=== PATIENT | male | born 1950 | race Caucasian/White ===

== ENCOUNTER → 2017-05-25 | Day surgery (SDC) | payer OTHER, MEDICARE ==
[~2017-05-25] MED LIST: ACETAMINOPHEN325 MG PO; ALEVE; ALEVE220 M1 PO; AMLODIPINE BESYL5 MG PO; ASPIRIN; AZITHROMYCIN250 MG PO; BLOOD PRESSURE MED; BLOOD PRESSURE PILL; CALCIUM + D 6001 TA1 PO; CHOLESTEROL MED; DOCUSATE SODIU100 MG PO; DOXYCYCLINE HY100 M2 PO; FENOFIBRATE160 MG PO; FERRO-TIME325 MG PO; FLEXERIL10 MG PO; FLOMAX0.4 M1 PO; HALOPERIDOL2 MG PO; HYDROCHLOROTHIA25 MG PO; HYDROCODON-ACE1 EAC5 PO; HYTRIN1 M1 PO; LIPITOR; LISINOPRIL; LISINOPRIL PO; LISINOPRIL-HCTZ1 T14 PO; LISINOPRIL-HCTZ1 T15 PO; LISINOPRIL20 MG PO; METOPROLOL SUCC50 MG PO; MILK OF MAGNESIA PO; MOBIC15 MG PO; MULTI VITAMIN1 EACH PO; MUSCLE RELAXER PO; NEURONTIN300 MG PO; NORCO 10/3251 TAB PO; NORVASC PO; OMEPRAZOLE40 M1 PO; OMEPRAZOLE40 MG PO; OXYCONTIN40 MG PO; PERCOCET 10/31 UDTA1 PO; PRAVACHOL20 MG PO; PRAVASTATIN SOD20 MG PO; PRENATAL1 TA1 PO; REMERON PO; REMERON15 MG PO; RESTORIL15 MG PO; ROBITUSSIN PO; SEROQUEL PO; SEROQUEL50 M1 PO; TEKTURNA HCT 301 TA1 PO; TEMAZEPAM PO; TEMAZEPAM30 MG PO; TIZANIDINE HCL4 M1 PO; TOPAMAX200 MG PO; TOPIRAMATE100 MG PO; TOPROL XL 50 MG50 MG PO; TOPROL XL PO; VICODIN 5/500 T1 TAB PO; VIIBRYD40 MG PO; VITAMIN B-12500 MCG PO; VITAMIN B12 INJECT; VITAMIN B125000 MCG PO; VITAMIN D1000 UNIT PO; WATER PILL; XARELTO20 MG PO; ZANAFLEX4 M1 PO
--- NOTE | ~2017-05-25 | OR ---
Unit #: [id number] #: [id number] Patient: KENYON ABARCA [id number] [address] [address] [id number] O MR#: [id number] NAME: KENYON ABARCA ROOM: Date of Procedure: 05/25/2017 Admission Date: 05/25/2017 Surgeon: Keith Tapia M.D. : 1950 Attending Physician: Keith Tapia M.D. Primary Care Physician: Sergey Barajas M.D. OPERATIVE REPORT PREOPERATIVE DIAGNOSES Back pain, radiculopathy, degenerative disk disease, postlumbar fusion. POSTOPERATIVE DIAGNOSES Back pain, radiculopathy, degenerative disk disease, postlumbar fusion. PROCEDURE PERFORMED Lumbar epidural steroid injection with intravenous sedation and fluoroscopic guidance for needle localization. INDICATIONS FOR PROCEDURE The patient is a 67-year-old male with worsening back and bilateral lower extremity pain associated with previously mentioned nonsurgical pathology. He has been fused from L3-S1. He has significant adjacent level disease. He was last treated for flare in this pain 7 months ago and did very well until just recently. At that point, he also had cervical epidurals due to cervical disk herniation at the symptomatic. Neck is remained adequately controlled. DESCRIPTION OF PROCEDURE The patient was placed in a seated position. Standard monitors were applied. 0.5 mg of Versed was given for sedation and anxiolysis, which were adequate. Vital signs remained stable. Sterile prep and drape then of the lumbar area was performed. The skin at the L2-L3 level was localized with 1% lidocaine. An 18-gauge [employer] needle was then advanced via loss of resistance technique and fluoroscopic guidance in toward the epidural space. After confirming proper positioning with fluoroscopy and radiographic contrast, 80 mg of Depo-Medrol and 4 mL of 0.125% bupivacaine were deposited. The patient tolerated the procedure otherwise well and was discharged to the recovery room in stable condition. Dictated by... Ciaran TaylorP/modl TD: 05/25/2017 14:19 JOB #: [id number] Unit #: [id number] #: [id number] Patient: KENYON ABARCA OPERATIVE REPORT Page 1 of 1 X Keith Tapia MD X PROCEDURE OPERATIVE NOTE
== END | disposition home or self-care (01) ==
LOC: CCSC 08:15
DX: M51.16 Intervertebral disc disorders with radiculopathy, lumbar region (principal); Z98.1 Arthrodesis status
CPT/HCPCS: J1040; J2250

== ENCOUNTER → 2017-06-01 | Day surgery (SDC) | payer OTHER, MEDICARE ==
--- NOTE | ~2017-06-01 | OR ---
Unit #: [id number] #: [id number] Patient: KENYON ABARCA [id number] [address] [address] [id number] O MR#: [id number] NAME: KENYON ABARCA ROOM: Date of Procedure: 06/01/2017 Admission Date: 06/01/2017 Surgeon: Keith Tapia M.D. : 1950 Attending Physician: Keith Tapia M.D. Primary Care Physician: Sergey Barajas M.D. OPERATIVE REPORT JOB NOTE: CC: [facility]. PREOPERATIVE DIAGNOSES Back pain, radiculopathy, post lumbar fusion, degenerative lumbar disk disease. POSTOPERATIVE DIAGNOSES Back pain, radiculopathy, post lumbar fusion, degenerative lumbar disk disease. PROCEDURE PERFORMED Lumbar epidural steroid injection with intravenous sedation and fluoroscopic guidance for needle localization. INDICATIONS FOR PROCEDURE The patient is a 67-year-old male with return of back and bilateral lower extremity pain. He has significant adjacent level disease above his L3-S1 fusion. epidural steroids address this 7 months ago and did very well. He had resurgence of the pain, so a repeat injection was done which resulted in fairly good settling of his symptom complex not yet back to baseline, so the plan is to repeat a second injection. DESCRIPTION OF PROCEDURE The patient was placed in a seated position. Standard monitors were applied. 0.5 mg of Versed were given for sedation and anxiolysis, which were adequate. Vital signs remained stable. Sterile prep and drape then of the L2-L3 level was localized with 1% lidocaine. An 18-gauge Meludiate[employer] needle was then advanced via loss of resistance technique and fluoroscopic guidance in toward the epidural space. After confirming proper positioning with fluoroscopy and radiographic contrast, 80 mg of Depo-Medrol and 4 mL of 0.125% bupivacaine were deposited. The patient tolerated the procedure otherwise well and was discharged to recovery room in stable condition. Dictated by... Keith Tapia M.D. LIO/kym TD: 06/01/2017 10:48 JOB #: [id number] Unit #: [id number] #: [id number] Patient: KENYON ABARCA OPERATIVE REPORT Page 1 of 1 X Keith Tapia MD X PROCEDURE OPERATIVE NOTE
== END | disposition home or self-care (01) ==
LOC: CCSC 08:05
DX: M51.16 Intervertebral disc disorders with radiculopathy, lumbar region (principal); I10 Essential (primary) hypertension; K21.9 Gastro-esophageal reflux disease without esophagitis; F32.9 Major depressive disorder, single episode, unspecified; Z88.8 Allergy status to other drugs, medicaments and biological substances; Z79.01 Long term (current) use of anticoagulants; Z79.1 Long term (current) use of non-steroidal anti-inflammatories (NSAID); Z79.899 Other long term (current) drug therapy; Z79.891 Long term (current) use of opiate analgesic; Z98.1 Arthrodesis status
CPT/HCPCS: J1040; J2250

== ENCOUNTER → 2017-06-08 | Day surgery (SDC) | payer OTHER, MEDICARE ==
--- NOTE | ~2017-06-08 | OR ---
Unit #: [id number] #: [id number] Patient: KENYON ABARCA [id number] [address] [place], [place] [address] [id number] O MR#: [id number] NAME: KENYON ABARCA ROOM: Date of Procedure: 06/08/2017 Admission Date: 06/08/2017 Surgeon: Keith Tapia M.D. : 1950 Attending Physician: Keith Tapia M.D. Primary Care Physician: Sergey Barajas M.D. OPERATIVE REPORT JOB NOTE: CC: [facility] PREOPERATIVE DIAGNOSES Post-fusion, degenerative disk disease, back pain, radiculopathy. POSTOPERATIVE DIAGNOSES Post-fusion, degenerative disk disease, back pain, radiculopathy. PROCEDURE PERFORMED Lumbar epidural steroid injection with intravenous sedation and fluoroscopic guidance for needle localization. INDICATIONS FOR PROCEDURE The patient is a 67-year-old male, status post L3 through S1 fusion. He has significant adjacent level disease causing back and bilateral lower extremity pains. At this point, nonsurgical in nature. He has done very well in the past with epidural steroids. Last injection lasting him for about 7 months. He had resurgence of the pain. He has had 2 injections done over the last few weeks that definitely significantly improved his pain by greater than 50%. He is able to walk up from his car to the clinic today, where normally he would have to stop 2 or 3 times using a cane and the balance should hold on to. Based on his good partial response, but he is not back to the prior baseline, we will have to achieve. We will proceed with what should be a final injection today. DESCRIPTION OF PROCEDURE The patient was placed in a seated position. Standard monitors were applied. 0.5 mg Versed was given for sedation and anxiolysis, which were adequate. Vital signs remained stable. Sterile prep and drape then of the lumbar area was performed. The skin at the L2-L3 level was localized with 1% lidocaine. An 18-gauge [employer] needle was then advanced via loss of resistance technique and fluoroscopic guidance in toward the epidural space. After confirming proper positioning with fluoroscopy and radiographic contrast, 80 mg of Depo-Medrol and 4 mL of 0.125% bupivacaine were deposited. The patient tolerated the procedure well and was discharged to recovery room in stable condition. Dictated by... Keith Tapia M.D. Unit #: [id number] #: [id number] Patient: KENYON ABARCA LHP/modl TD: 06/08/2017 14:18 JOB #: [id number] OPERATIVE REPORT Page 1 of 1 X Keith Tapia MD X PROCEDURE OPERATIVE NOTE
== END | disposition home or self-care (01) ==
LOC: CCSC 07:33
DX: M51.16 Intervertebral disc disorders with radiculopathy, lumbar region (principal); I10 Essential (primary) hypertension; K21.9 Gastro-esophageal reflux disease without esophagitis; Z88.8 Allergy status to other drugs, medicaments and biological substances; Z79.1 Long term (current) use of non-steroidal anti-inflammatories (NSAID); Z79.891 Long term (current) use of opiate analgesic; Z79.899 Other long term (current) drug therapy; Z98.1 Arthrodesis status
CPT/HCPCS: J1040; J2250